=== PATIENT | female | born 2000 | race Caucasian/White ===

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

== ENCOUNTER 2021-02-10 17:51 | Emergency (ER) | payer OTHER, SELFPAY ==
--- NOTE | ~2021-02-10 | CT_ITS ---
EXAMINATION: CT abdomen pelvis w con INDICATION: Nausea and vomiting, right lower quadrant pain TECHNIQUE: Computed tomographic images of the abdomen and pelvis were obtained after the administrati on of 100 cc of Omnipaque 350 intravenous contrast. The dose-length product (DLP) was 1059.33 mGy-cm. Automated exposure control and iterative reconstruction technique were employed. COMPARISON: 07/28/2019 FINDINGS: The lung bases are clear. The heart size is normal. There is focal steatosis of the liver a djacent to the ligamentum teres. The spleen, pancreas, gallbladder, and adrenal glands are normal. Th e kidneys are unremarkable. No pathologically enlarged abdominal or pelvic lymph nodes are identified . There is no free intraperitoneal gas or evidence of bowel obstruction. The appendix is normal. IMPRESSION: 1. No CT correlate for the patient's symptoms. Reviewed, dictated and finalized at location A.
--- NOTE | 2021-02-10 18:01 | ECG_ITS ---
Measurements Intervals [place] Rate: 98 P: 10 NM: 150 QRS: 36 QRSD: 93 T: 1 QT: 334 QTc: 427 Interpretive Statements SINUS RHYTHM INCOMPLETE RIGHT BUNDLE BRANCH BLOCK BORDERLINE T WAVE ABNORMALITY- INFERIOR LEADS BORDERLINE ECG Electronically Signed On 02-14-2021 15:56:41 CDT by Ramon Malone D.O.
[2021-02-10 18:17] VITALS: BP 136/78; PULSE 95; RESP 16; TEMP 36.6; O2SAT 100
[2021-02-10 19:02] LABS: Basophils Percent Auto 0.4 % (0.2-1.2); Eosinophils Absolute Auto 0.2 K/mm3 (0-0.3); Eosinophils Percent Auto 1.7 % (0-4.4); Hematocrit 41.2 % (37.0-47.0); Hemoglobin 13.7 g/dL (12.0-15.0); Immature Granulocyte Absolute 0.02 K/mm3 (0.00-0.031); Immature Granulocyte Percent A 0.2 % (0-0.5); Lymphocytes Percent Auto 20.4 % (18.3-44.2); Mean Corpuscular HGB Conc 33.3 g/dl (32-36); Mean Corpuscular Volume 84.3 fl (80-100); Mean Platelet Volume 10.9 fl (7.4-10.4); Monocytes Absolute Auto 0.5 K/mm3 (0.1-0.6); Monocytes Percent Auto 5.4 % (2.6-8.5); Neutrophils Absolute Auto 7.1 K/mm3 (1.3-6.7); Neutrophils Percent Auto 71.9 % (45.5-73.1); Platelet Count Result 275 k/mm3 (150-375); Red Blood Count 4.89 M/mm3 (4.2-5.4); Red Cell Distribution Width 12.1 % (11.5-14.5); White Blood Count 9.8 K/mm3 (4.5-10.0)
--- NOTE | 2021-02-10 19:03 | ECG_ITS ---
Measurements Intervals [place] Rate: 73 P: 19 CO: 167 QRS: 27 QRSD: 96 T: 15 QT: 357 QTc: 394 Interpretive Statements SINUS RHYTHM INCOMPLETE RIGHT BUNDLE BRANCH BLOCK BASELINE WANDER- I, III, AVL, AVF BORDERLINE ECG Electronically Signed On 02-11-2021 7:31:12 CDT by Ramon Malone D.O.
[2021-02-10 19:15] LABS: Alanine Aminotransferase 25 U/L (4-35); Albumin Level 4.9 g/dL (3.7-5.6); Alkaline Phosphatase 82 U/L (45-116); Anion Gap 14 mmol/L (8-16); Aspartate Amino Transferase 46 U/L (14-36); Bilirubin,Total 0.4 mg/dL (0.2-1.3); Blood Urea Nitrogen 11 mg/dL (8-21); Calcium 9.9 mg/dL (8.9-10.7); Carbon Dioxide 19 mmol/L (22-30); Chloride 107 mmol/L (98-107); Estimated CRCL calculation 97 ml/min; Estimated Glomerular Filt Rate > 60; Glucose 76 mg/dL (65-110); Lipase 107 U/L (23-300); Potassium 4.2 mmol/L (3.4-5.0); Sodium 140 mmol/L (134-143)
[2021-02-10] MEDS: ONDANSETRON INJ 4 MG/2 ML VIAL IV PUSH (19:26)
[2021-02-10] MEDS: SODIUM CHLORIDE 0.9% IV 1,000 ML 999 ML IV CONT (19:26)
[2021-02-10] MEDS: FAMOTIDINE 20 MG/2 ML VIAL IV PUSH (19:26)
[2021-02-10 19:35] LABS: Add Urine Microscopic? YES; Amorphous Sediment Urine Few; Appearance Urine Cloudy (Clear); Bacteria Urine Trace /hpf; Bilirubin Urine Negative (Negative); Blood Urine 1+ (Negative); Color Urine Yellow (Yellow); Glucose Urine UA Negative (Negative); Ketones Urine Negative (Negative); Leukocyte Esterase Ur Negative LEU/UL (Negative); Mucus Urine Rare /lpf; Nitrate Urine Negative (Negative); Protein Urine Negative (Negative); RBC Urine 0-2 /hpf (0-2); Specific Grav Ur 1.012 (1.001-1.035); Squamous Epithelial Cell Urine Many /hpf (Few); Urobilinogen Urine Negative mg/dL (<2.0); WBC Urine 0-3 /hpf
[2021-02-10 19:39] VITALS: BP 110/64; PULSE 82
--- NOTE | 2021-02-10 19:40 | ED.GENADULT ---
HPI - General Adult General Chief complaint: Nausea/Vomiting/Diarrhea Stated complaint: high blood pressure/heart rate, throwing up blood Time Seen by Provider: 02/10/21 19:02 Source: patient and RN notes reviewed Mode of arrival: ambulatory Limitations: no limitations History of Present Illness HPI narrative: Patient is a 20-year-old female who presents with 2 days duration of nausea and vomiting with pain localized to the right lower quadrant patient has had GI issues in the past but states typically not causing this much emesis patient on arrival notes belly pain and nausea denies sick contacts or other complaints has not taken anything for her symptoms Related Data Home Medications Medication Instructions Recorded Confirmed dicyclomine 10 mg capsule 10 mg PO QID 01/18/21 01/18/21 nortriptyline 25 mg capsule 25 mg PO DAILY 01/18/21 01/18/21 ondansetron 4 mg disintegrating 4 mg PO Q8H 01/18/21 01/18/21 tablet Allergies Allergy/AdvReac Type Severity Reaction Status Date / Time No Known Allergies Allergy Verified 01/18/21 10:34 Review of Systems Review of Systems: All systems reviewed & are unremarkable except as noted in HPI and below PMFSH Past Medical History Medical History Abdominal pain BMI 37.0-37.9, adult COVID-19 Elevated lipase Migraine Family History Family History Father Hypertension Mother Diabetes mellitus Sibling No problems noted. 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 Gender identity (if verbalized by the patient): Female Exam Narrative: GENERAL: Well-appearing, well-nourished, and in no acute distress. HEAD: Normocephalic, atraumatic. EYES: PERRLA and EOMI. ENT: Nares clear, no rhinorrhea or epistaxis. Mucous membranes moist. CHEST: Clear to auscultation. No respiratory distress. No wheezes rales or rhonchi HEART: Regular rate and rhythm. No murmur heard. Normal peripheral pulses. ABDOMEN: Soft, right lower quadrant abdominal tenderness to palpation, nondistended, normal active bowel sounds. EXTREMITIES: Normal range of motion. No edema. SKIN: Warm, dry, no rash. NEURO: No focal deficits. Alert and oriented x3. PSYCH: Normal mood and affect. Course Course Emergency Course: Patient in the room in no distress resting comfortably aware of case findings treatment plan diagnosis Vital Signs Vital signs: Vital Signs Temperature 97.8 F 02/10/21 18:17 Pulse Rate 95 02/10/21 18:17 Respiratory Rate 16 02/10/21 18:17 Blood Pressure 136/78 02/10/21 18:17 Pulse Oximetry 100 02/10/21 18:17 Temperature 97.8 F 02/10/21 18:17 Pulse Rate 91 02/10/21 21:23 Respiratory Rate 26 H 02/10/21 21:23 Blood Pressure 123/66 02/10/21 21:23 Pulse Oximetry 100 02/10/21 21:23 Medical Decision Making MDM Narrative Medical decision making narrative: Patient with emesis right lower quadrant normal CAT scan normal blood work will be discharged home with outpatient follow-up Vital Signs Vital Signs: Vital Signs Temperature 97.8 F 02/10/21 18:17 Pulse Rate 95 02/10/21 18:17 Respiratory Rate 16 02/10/21 18:17 Blood Pressure 136/78 02/10/21 18:17 Pulse Oximetry 100 02/10/21 18:17 Temperature 97.8 F 02/10/21 18:17 Pulse Rate 91 02/10/21 21:23 Respiratory Rate 26 H 02/10/21 21:23 Blood Pressure 123/66 02/10/21 21:23 Pulse Oximetry 100 02/10/21 21:23 Lab Data Result diagrams: 02/10/21 18:40 02/10/21 18:40 Labs: Lab Results 02/10/21 02/10/21 02/10/21 Range/Units 18:40 18:40 1
[2021-02-10 19:42] VITALS: BP 120/77; PULSE 80
[2021-02-10 19:44] VITALS: BP 136/86; PULSE 90
[2021-02-10 21:23] VITALS: BP 123/66; PULSE 91; RESP 26; O2SAT 100
[2021-02-10 22:10] VITALS: BP 112/77; PULSE 87; RESP 18; O2SAT 100
== END 2021-02-10 22:11 | disposition home or self-care (01) ==
PROVIDERS: Emergency Provider Emergency Medicine; PCP Family Medicine
DX: R10.31 Right lower quadrant pain (principal); Z86.16 Personal history of COVID-19; I45.10 Unspecified right bundle-branch block
CPT/HCPCS: 36415; 74177; 80053; 81001; 81025; 83690; 85025; 93005; 96361; 96374; 96375; 99284; J2405; J7030; Q9967

== ENCOUNTER 2021-03-08 07:44 | Outpatient (CLI) | payer OTHER, SELFPAY ==
--- NOTE | ~2021-03-08 | NM_ITS ---
EXAM: NM gastric emptying study DATE: 03/08/2021 12:42 INDICATION: Nausea and vomiting. TECHNIQUE: A gastric emptying study was performed using the methodology of Jaziel WEBSTER, et al. J Nucl Med 2007; 48:568-572. The patient was given a meal consisting of 2 scrambled eggs labeled with 0.935 mCi Tc-99m sulfur colloid, 2 slices of toast, two packages of jam, and approximately 120 mL of water . Simultaneous anterior and posterior 1-min images of the abdomen were obtained with the patient supi ne at multiple time points over a total period of 4 hours. The geometric mean of anterior and posteri or views was determined, and the percentage retention was calculated for each time point. COMPARISON: CT abdomen and pelvis 02/10/2021 FINDINGS: Gastric retention of the radiotracer-labeled meal was 39%, 25%, and 4% at the 1-hour, 2-ho ur, and 4-hour time points, respectively. With this technique, apparent rapid gastric emptying is sug gested by <30% gastric retention at 1 hour. Delayed gastric emptying is defined by gastric retention of >90% at 1 hour, >60% retention at 2 hours, or >10% retention at 4 hours. IMPRESSION: 1. Normal gastric emptying. Reviewed, dictated and finalized at location A. IMPRESSION: 1. Normal gastric emptying.
== END 2021-03-08 07:45 | disposition home or self-care (01) ==
LOC: ANHIMG 07:45
PROVIDERS: PCP Family Medicine; Visit Provider Nurse Practitioner Family
DX: R11.2 Nausea with vomiting, unspecified (principal)
CPT/HCPCS: 78264; A9541

== ENCOUNTER 2021-04-06 08:23 | Outpatient (CLI) | payer OTHER, SELFPAY ==
--- NOTE | ~2021-04-06 | MR_ITS ---
EXAMINATION: MR brain/brain stem wo con DATE: 04/06/2021 09:59 CDT INDICATION: Headache TECHNIQUE: Magnetic resonance imaging (MRI) of the brain and brainstem was performed without intraven ous contrast. Sequences included sagittal and axial T1-weighted SE, axial diffusion-weighted FS SE, a xial T2*-weighted GRE, axial T2-weighted FLAIR Propeller, and axial T2-weighted Propeller. Apparent d iffusion coefficient (ADC) maps were created. COMPARISON: No prior studies for comparison. FINDINGS: The brain volume and ventricular system are within normal limits. The brain parenchymal si gnal intensity pattern and darling/white matter is normal and there is no evidence of hemorrhage, space occupying masses or infarctions. The flow signal voids of the major arterial structures about the campo of [place] and within the miguel angel r dural venous sinuses appear grossly unremarkable and patent. The seventh and eighth cranial nerve complexes are normal. The mid sagittal image demonstrates a normal craniovertebral junction and marcy us callosum. There is a small mucous retention cyst of the left maxillary sinus. Orbits are symmetric without disconjugate gaze. IMPRESSION: 1: Unremarkable MRI of the brain. Reviewed, dictated and finalized at location A.
== END 2021-04-06 08:24 | disposition home or self-care (01) ==
LOC: ANHIMG 08:30
PROVIDERS: PCP Family Medicine; Visit Provider Nurse Practitioner Family
DX: R51.9 Headache, unspecified (principal)
CPT/HCPCS: 70551

== ENCOUNTER 2021-07-03 22:48 | Emergency (ER) | payer OTHER, SELFPAY ==
--- NOTE | ~2021-07-03 | CT_ITS ---
EXAMINATION: CT lumbar spine wo con DATE: 07/03/2021 23:42 INDICATION: 8 hours of lower back pain and leg weakness TECHNIQUE: Computed tomography (CT) of the lumbar spine was performed without intravenous contrast. A utomated exposure control and iterative reconstruction technique were employed. The dose-length produ ct was 1337.74 mGy-cm. COMPARISON: CT dated 02/10/2021 FINDINGS: Alignment is normal. Vertebral body heights are normal. No fracture. Unchanged small unchanged small Schmorl's nodes along the central posterior aspect of the superior endplates of L4 and L5. Disc heigh ts are normal. Multilevel mild facet osteoarthritis throughout the lumbar and visualized lower thorac ic spine. Although sensitivity and specificity are significantly lower on CT than MRI there are disc bulges at L3-L4 through L5-S1 which are better appreciated on the prior contrast enhanced CT of the a bdomen and pelvis with a resultant mild to moderate central canal stenosis at L3-L4 and L4-L5. No sig nificant neural foraminal stenosis. Paravertebral soft tissues are unremarkable. Mild bilateral sacra l iliac osteoarthritis. IMPRESSION: 1. Mild lumbar spondylosis with disc bulges at L3-L4 through L5-S1 resulting in mild to moderate cent ral canal stenosis at L3-L4 and L4-L5. No acute osseous abnormality. Reviewed, dictated and finalized at location . E RESPOOLER IMPRESSION: 1. Mild lumbar spondylosis with disc bulges at L3-L4 through L5-S1 resulting in mild to moderate central canal stenosis at L3-L4 and L4-L5. No acute osseous a bnormality.
--- NOTE | 2021-07-03 23:06 | ED.BACK ---
HPI - Back Pain/Injury General Chief Complaint: Back Pain/Injury Stated Complaint: back pain Time Seen by Provider: 07/03/21 23:17 History of Present Illness HPI Narrative: 20-year-old woman comes in today complaining of worsening back pain for the last month. Patient states that she feels her legs are weak as well. She denies any falls or injuries. She has been seeing a chiropractor for her symptoms and getting no relief. She is currently taking tizanidine 2 mg t.i.d. as well as ibuprofen 600 mg as needed for her pain. She last took ibuprofen at 3:00 p.m.. She has had back pain issues in the past. 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 She denies dysuria, hematuria, frequent urination, incontinence, perineal numbness, radiating pain, leg or foot numbness, night sweats, weight loss and fever. MD elicited complaint: back pain Pertinent past history: prior back pain Onset (ago): week(s) (4) Timing: constant and progressively worsening Severity: severe Quality: sharp and aching Location: lumbar spine Radiation: none Exacerbating factors: movement and coughing/sneezing Relieving factors: none Associated symptoms: weakness Treatments prior to arrival: NSAIDS and prescription analgesics (Tizanidine) Related Data Home Medications Medication Instructions Recorded Confirmed dicyclomine 10 mg capsule 10 mg PO BID 06/13/21 07/03/21 amitriptyline 25 mg PO HS 07/03/21 07/03/21 Allergies Allergy/AdvReac Type Severity Reaction Status Date / Time No Known Allergies Allergy Verified 07/03/21 23:22 Review of Systems Review of Systems: All systems reviewed & are unremarkable except as noted in HPI and below Constitutional: Constitutional: Denies chills, Denies fever(s) and Reports weakness ENT: Denies nasal congestion and Denies sore throat Cardiovascular: Cardiovascular: Denies chest pain and Denies radiating jaw, neck or arm pain Respiratory: Respiratory: Denies cough and Denies dyspnea Gastrointestinal: Gastrointestinal: Denies abdominal pain, Denies diarrhea, Denies nausea and Denies vomiting Genitourinary: Genitourinary: Denies hematuria, Denies nocturia and Denies dysuria Musculoskeletal: Musculoskeletal: Reports as per HPI, Reports back pain, Denies arthralgias and Denies joint swelling Integumentary/Breasts: Skin/Breast: Denies pruritus, Denies erythema and Denies rash Neurologic: Denies vertigo, Denies dizziness and Denies syncope [facility] Past Medical History Medical History Abdominal pain BMI 35.0-35.9,adult BMI 37.0-37.9, adult BMI 38.0-38.9,adult COVID-19 Elevated lipase IBS (irritable bowel syndrome) Migraine Family History Family History Father Hypertension Mother Diabetes mellitus Sibling No problems noted. 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 Gender identity (if verbalized by the patient): Female Exam Const: General: healthy appearing and alert Orientation/consciousness: patient oriented x3 Limitations: no limitations Other: Moderate to severe acute distress. HENMT: Head: normal to inspection Ears: external ears normal, TM's normal bilaterally and EAC's normal Mouth: Yes moist mucous membranes Throat: posterior oropharynx normal Eyes: Conjunctivae: conjunctivae normal Pupils: Equal, round and reactive pupils present EOM: EOMs intact bilaterally Resp: Effort & Inspection: normal respiratory effort and not labored Auscultation: clear to auscultation bilaterally,
[2021-07-03 23:12] VITALS: BP 148/96; PULSE 103; RESP 21; TEMP 36.9; O2SAT 97
[2021-07-03 23:22] LABS: Add Urine Microscopic? YES; Appearance Urine Clear (Clear); Bilirubin Urine Negative (Negative); Blood Urine 2+ (Negative); Color Urine Light Yellow (Yellow); Glucose Urine UA Negative (Negative); Ketones Urine Negative (Negative); Leukocyte Esterase Ur Negative (Negative); Nitrate Urine Negative (Negative); Protein Urine Negative (Negative); Urobilinogen Urine 0.2 mg/dL (0.2-1.0)
[2021-07-03 23:27] LABS: Bacteria Urine Trace /hpf; Squamous Epithelial Cell Urine Few /hpf (Few); WBC Urine 0-3 /hpf (0-3)
[2021-07-03 23:28] LABS: Pregnancy On Board Control Positive; Urine Pregnancy Test Negative
[2021-07-03] MEDS: HYDROcodone/acetaminophen (*CRX) 5-325 MG TABLET 1 TAB PO (23:48)
[2021-07-03] MEDS: KETOROLAC (*BKC) 60 MG/2 ML VIAL IM (23:49)
[2021-07-04 00:25] VITALS: BP 126/76; PULSE 95; RESP 17; O2SAT 99
== END 2021-07-04 00:27 | disposition home or self-care (01) ==
PROVIDERS: Emergency Provider Emergency Medicine; PCP Family Medicine
DX: M54.50 Low back pain, unspecified (principal)
CPT/HCPCS: 72131; 81001; 81025; 96372; 99283; 99284; A9270; J1885

== ENCOUNTER → 2022-06-14 13:33 | Outpatient (CLI) | payer OTHER, SELFPAY ==
--- NOTE | ~2022-06-14 | US_ITS ---
EXAMINATION: US transvaginal DATE: 06/14/2022 13:56 INDICATION: Unspecified amenorrhea TECHNIQUE: Multiple endovaginal sonographic images of the pelvis were obtained. COMPARISON: None. FINDINGS: The uterus measures 8.2 x 3.5 x 4.6 cm. The endometrial complex measures 13 mm. The right o vary measures 2.3 x 2 x 2.6 cm. The left ovary measures 2.4 x 2.6 x 2 cm. There is normal vascular fl ow in the ovaries. There is no free fluid in the pelvis. IMPRESSION: 1. No sonographic correlate for the patient's symptoms. Reviewed, dictated and finalized at location A. 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
== END ==
PROVIDERS: PCP Family Medicine; Visit Provider Nurse Practitioner
DX: N91.2 Amenorrhea, unspecified (principal)
CPT/HCPCS: 76830

== ENCOUNTER 2023-04-02 11:14 | Emergency (ER) | payer OTHER, SELFPAY ==
[2023-04-02 11:45] VITALS: BP 135/97; PULSE 76; RESP 16; TEMP 36.5; O2SAT 100
[2023-04-02 12:08] LABS: Basophils Absolute Auto 0.1 K/mm3 (0.0-0.1); Basophils Percent Auto 0.6 % (0.2-1.2); Eosinophils Absolute Auto 0.2 K/mm3 (0-0.3); Eosinophils Percent Auto 2.1 % (0-4.4); Hematocrit 36.3 % (37.0-47.0); Hemoglobin 11.9 g/dL (12.0-15.0); Immature Granulocyte Absolute 0.02 K/mm3 (0.00-0.031); Immature Granulocyte Percent A 0.2 % (0-0.5); Lymphocytes Absolute Auto 2.47 K/mm3 (0.9-3.2); Lymphocytes Percent Auto 27.9 % (18.3-44.2); Mean Corpuscular HGB Conc 32.8 g/dl (32-36); Mean Corpuscular Hemoglobin 27.4 pg (26-34); Mean Corpuscular Volume 83.6 fl (80-100); Mean Platelet Volume 10.3 fl (7.4-10.4); Monocytes Absolute Auto 0.5 K/mm3 (0.1-0.6); Monocytes Percent Auto 5.9 % (2.6-8.5); Neutrophils Absolute Auto 5.6 K/mm3 (1.3-6.7); Neutrophils Percent Auto 63.3 % (45.5-73.1); Platelet Count Result 323 k/mm3 (150-375); Red Blood Count 4.34 M/mm3 (4.2-5.4); Red Cell Distribution Width 12.7 % (11.5-14.5); White Blood Count 8.8 K/mm3 (4.5-10.0)
[2023-04-02 12:36] LABS: Beta HCG Quantitative < 2.39 mIU/ML
[2023-04-02 13:45] VITALS: BP 120/68; PULSE 75
[2023-04-02 13:47] VITALS: BP 125/63; PULSE 82
[2023-04-02 13:48] VITALS: BP 118/72; PULSE 97
--- NOTE | 2023-04-02 14:23 | ED.GENADULT ---
HPI - General Adult General Chief complaint: Vaginal Bleeding Stated complaint: vaginal bleeding Time Seen by Provider: 04/02/23 13:46 History of Present Illness HPI narrative: Marlene Barajas is a 22 y/o female with PMHx of PCOS with heavy menstrual cycles. She states that she had a menstrual cycle 2 months ago that lasted a month, then she went a month without a cycle and then started to have this cycle that started on 03/19. She called her OBGYN because she was having heavy vaginal bleeding going through a tampon in 3 hours. She was then started on progesterone on 03/23. She thinks her bleeding has slowed down, she thought it was over and then started to have more vaginal bleeding today- she called her OBGYN in [place] and her OB is out sick and they encouraged her to go to the ED to make sure her counts are stable and to make sure she is not having a miscarriage. Patient denies any pain / complaints at this time and has used 2-3 pads today so far and states that she believes the vaginal bleeding is better then it was. Related Data Allergies Allergy/AdvReac Type Severity Reaction Status Date / Time No Known Allergies Allergy Verified 04/02/23 13:50 Review of Systems Review of Systems: CONSTITUTIONAL: Denies fever, chills, or sweats. EYES: Denies visual changes, redness, or discharge. ENT: Denies rhinorrhea, congestion, sore throat, or otalgia. CARDIOVASCULAR: Denies chest pain, palpitations, or edema. RESPIRATORY: Denies cough or dyspnea. GASTROINTESTINAL: Denies abdominal pain, nausea, vomiting, or diarrhea. GENITOURINARY: Denies dysuria or hematuria. SKIN: Denies rash or itching. MUSCULOSKELETAL: Denies back pain, joint pain, or myalgia. NEUROLOGIC: Denies headache, numbness, dizziness, or weakness. PSYCHIATRIC: Denies anxiety or depression. [facility] Past Medical History Medical History Abdominal pain BMI 35.0-35.9,adult BMI 37.0-37.9, adult BMI 38.0-38.9,adult BMI 40.0-44.9, adult COVID-19 Elevated lipase IBS (irritable bowel syndrome) Lumbar spondylosis Migraine Family History Family History Father Hypertension Mother Diabetes mellitus Sibling No problems noted. Other Family history of coronary artery disease Social History Social History Smoking status: Never smoker Second hand tobacco smoke exposure: No Alcohol intake: never Substance use: never Substance use type: does not use Lack of Transportation: YES Lack of Food: Never True Current Housing: I Have Housing Concerned About Future Housing: No Difficulty Paying Gas/Electric Bills: No Difficulty Paying for Meds: No Currently Unemployed: No Education: High School Diploma/GED Difficulty w/ Childcare or Family Care: No Living arrangements: with family Occupation/Education: occupation Additional occupation/education comments: [employer] Gender identity (if verbalized by the patient): Female Exam Narrative: GENERAL: Well-appearing, well-nourished, and in no acute distress. HEAD: Normocephalic, atraumatic. EYES: PERRLA and EOMI. ENT: Nares clear, no rhinorrhea or epistaxis. Mucous membranes moist. Oropharynx without tonsillar hypertrophy exudate or other lesions. NECK: Supple. No adenopathy or masses. No carotid bruits or JVD CHEST: Clear to auscultation. No respiratory distress. No wheezes rales or rhonchi HEART: Regular rate and rhythm. No murmur heard. Normal peripheral pulses. ABDOMEN: Soft, nontender, nondistended, normal active bowel sounds. EXTREMITIES: Normal range of motion. No edema. SKIN: Warm, dry, no rash. NEURO: No focal deficits. Alert and oriented x3. PSYCH: Normal mood and affect. Course Vital Signs Vital signs: Vital Signs Temperature 36.5 C 04/02/23 11:45 Pulse Rate 76 04/02/23 11:45 Respiratory Rate
[2023-04-02 14:46] VITALS: BP 116/92; PULSE 57; RESP 14; O2SAT 97
== END 2023-04-02 14:46 | disposition home or self-care (01) ==
PROVIDERS: Emergency Medicine; Emergency Provider Nurse Practitioner Family; PCP Family Medicine
DX: N93.8 Other specified abnormal uterine and vaginal bleeding (principal); E28.2 Polycystic ovarian syndrome
CPT/HCPCS: 36415; 84702; 85025; 85461; 86850; 86900; 86901; 99283

== ENCOUNTER 2023-11-23 15:01 | Emergency (ER) | payer SELFPAY ==
--- NOTE | ~2023-11-23 | CT_ITS ---
EXAMINATION: CT abdomen pelvis w con DATE: 11/23/2023 19:01 INDICATION: epigastric pain TECHNIQUE: Computed tomography (CT) of the abdomen and pelvis was performed with 100 mL Omnipaque-350 intravenous contrast. Automated exposure control and iterative reconstruction technique were employe d. The dose-length product was 1473.62 mGy-cm. COMPARISON: 02/10/2021. FINDINGS: Lower thorax: Unremarkable Liver: Normal. Biliary/Gallbladder: Gallbladder is normal. No bile duct dilation. Pancreas: No mass or duct dilation. Spleen: Normal. Adrenals:No mass. Kidneys: No suspicious mass, obstructing stone, or hydronephrosis. GI tract: Mild distal esophageal and moderate antral wall edema. Small hiatal hernia. No small or lar ge bowel dilation. Normal appendix. Mesentery/Peritoneum: No ascites, mass, or free air. Retroperitoneum: No mass. Pelvis: Pelvic organs are within normal limits. Soft Tissues: Soft tissues and body wall unremarkable. Bones: No acute osseous finding. IMPRESSION: Mild esophagitis and moderate antral gastritis. Otherwise unremarkable CT abdomen and pelvis findings. Reviewed, dictated and finalized at location K.
[2023-11-23 15:09] VITALS: BP 147/93; PULSE 102; RESP 18; TEMP 36.6; O2SAT 100
[2023-11-23 16:36] LABS: Basophils Percent Auto 0.4 % (0.2-1.2); Eosinophils Absolute Auto 0.2 K/mm3 (0-0.3); Eosinophils Percent Auto 2.1 % (0-4.4); Hematocrit 33.1 % (37.0-47.0); Hemoglobin 10.8 g/dL (12.0-15.0); Immature Granulocyte Absolute 0.03 K/mm3 (0.00-0.031); Immature Granulocyte Percent A 0.3 % (0-0.5); Lymphocytes Absolute Auto 2.52 K/mm3 (0.9-3.2); Lymphocytes Percent Auto 26.6 % (18.3-44.2); Mean Corpuscular HGB Conc 32.6 g/dl (32-36); Mean Corpuscular Hemoglobin 27.7 pg (26-34); Mean Corpuscular Volume 84.9 fl (80-100); Mean Platelet Volume 10.6 fl (7.4-10.4); Monocytes Absolute Auto 0.5 K/mm3 (0.1-0.6); Monocytes Percent Auto 5.6 % (2.6-8.5); Neutrophils Absolute Auto 6.2 K/mm3 (1.3-6.7); Platelet Count Result 307 k/mm3 (150-375); Red Cell Distribution Width 12.7 % (11.5-14.5); White Blood Count 9.5 K/mm3 (4.5-10.0)
[2023-11-23 16:49] LABS: Prothrombin Time 13.2 Seconds (11.1-14.7)
[2023-11-23 16:50] LABS: Partial Thromboplastin Time 26.4 Seconds (22.3-36.8)
[2023-11-23 16:55] LABS: Alanine Aminotransferase 17 U/L (6-35); Albumin Level 4.1 g/dL (3.5-5.1); Alkaline Phosphatase 69 U/L (38-126); Anion Gap 7 mmol/L (4-12); Aspartate Amino Transferase 22 U/L (14-36); Bilirubin,Total 0.3 mg/dL (0.2-1.3); Blood Urea Nitrogen 12 mg/dL (7-17); Calcium 9.1 mg/dL (8.4-10.2); Carbon Dioxide 24 mmol/L (22-30); Chloride 106 mmol/L (98-107); Estimated CRCL calculation 121 ml/min; Estimated Glomerular Filt Rate > 60; Glucose 118 mg/dL (65-110); Potassium 3.9 mmol/L (3.4-5.0); Sodium 137 mmol/L (137-145)
--- NOTE | 2023-11-23 18:09 | ED.ABDPAIN ---
HPI - Abdominal Pain General Chief Complaint: [employer] <Kashif Parisi MD - Last Filed: 11/23/23 18:20> Stated Complaint: Vaginal Bleeding and ABD Pain <Kashif Parisi MD - Last Filed: 11/23/23 18:20> Time Seen by Provider: 11/23/23 16:23 <Kashif Parisi MD - Last Filed: 11/23/23 18:20> Source: patient <Kashif Parisi MD - Last Filed: 11/23/23 18:20> Mode of arrival: ambulatory <Kashif Parisi MD - Last Filed: 11/23/23 18:20> Limitations: no limitations <Kashif Parisi MD - Last Filed: 11/23/23 18:20> History of Present Illness HPI narrative: 23-year-old otherwise healthy here with the complaints of having vaginal bleeding for last several weeks. Patient states that she has been seen in 2 different ERs for the same problem in the last 1 week was in [facility] in [place] and in [place] was started on control pill however she still continues to have vaginal bleeding. Patient states that she soaks about 3 pads a day. Since this morning now she is having upper abdominal pain. Call Dr. Henry recommended her to come to the ER. Patient states that she has not seen flux mixer yet. No history of fever or chills denies any nausea or vomiting. Patient states that initially her pain was in the lower abdomen now it has migrated to the upper abdomen <Kashif Parisi MD - Last Filed: 11/23/23 18:20> MD elicited complaint: abdominal pain <Kashif Parisi MD - Last Filed: 11/23/23 18:20> Pertinent past history: none <Kashif Parisi MD - Last Filed: 11/23/23 18:20> Onset (ago): week(s) (1) <Kashif Parisi MD - Last Filed: 11/23/23 18:20> Quality: aching <Kashif Parisi MD - Last Filed: 11/23/23 18:20> Radiation: suprapubic <Kashif Parisi MD - Last Filed: 11/23/23 18:20> Migration to: epigastric <Kashif Parisi MD - Last Filed: 11/23/23 18:20> Exacerbating factors: nothing <MD Leonie Peñaloza Last Filed: 11/23/23 18:20> Relieving factors: nothing <MD Leonie Peñaloza Last Filed: 11/23/23 18:20> Associated symptoms: denies other symptoms <MD Leonie Peñaloza Last Filed: 11/23/23 18:20> Related Data Home Medications: Home Medications Medication Instructions Recorded Confirmed norethindrone 1 mg-ethinyl 1 tablet PO DAILY 11/11/23 estradiol 35 mcg (21) tablet (Nortrel) <MD Leonie Peñaloza Last Filed: 11/23/23 18:20> Allergies/Adverse Reactions: Allergies Allergy/AdvReac Type Severity Reaction Status Date / Time No Known Allergies Allergy Verified 11/23/23 16:10 <Kashif Parisi MD - Last Filed: 11/23/23 18:20> Review of Systems Review of Systems: All systems reviewed & are unremarkable except as noted in HPI and below <MD Leonie Peñaloza Last Filed: 11/23/23 18:20> Constitutional: Constitutional: Reports no additional constitutional complaints <MD Leonie Peñaloza Last Filed: 11/23/23 18:20> Eyes: Eyes: Reports no additional eye complaints <MD Leonie Peñaloza Last Filed: 11/23/23 18:20> ENT: Reports system reviewed and no additional complaints, except as documented <MD Leonie Peñaloza Last Filed: 11/23/23 18:20> Cardiovascular: Cardiovascular: Reports no additional cardiovascular complaints <MD Leonie Peñaloza Last Filed: 11/23/23 18:20> Respiratory: Respiratory: Reports no additional respiratory complaints <MD Leonie Peñaloza Last Filed: 11/23/23 18:20> Gastrointestinal: Gastrointestinal: Reports as per HPI <MD Leonie Peñaloza Last Filed: 11/23/23 18:20> Genitourinary: Genitourinary: Reports as per HPI <MD Leonie Peñaloza Last Filed: 11/23/23 18:20> Musculoskeletal: Musculoskeletal: Reports no additional musculoskeletal complaints <MD Leonie Peñaloza Last Filed: 11/23/23 18:20> Integumentary/Breasts: Skin/Breast: Reports system reviewed and no additional complaints, except as docu <Kashif Parisi MD - Last Filed: 11/23/23 18:20> Neurologic: Reports sys
[2023-11-23] MEDS: KETOROLAC 15 MG/ML VIAL (*BKC) IV PUSH (18:27)
[2023-11-23] MEDS: FAMOTIDINE 20 MG TABLET PO (20:18)
[2023-11-23] MEDS: BELLADONNA ALK/PHENOB ELIX 10 ML, MAG HYDROX/ALUMINUM HYD/SIMETH 30 ML, LIDOCAINE HCL 2... PO (20:18)
[2023-11-23 20:30] LABS: Bacteria Urine 1+ /hpf; Non Pathogenic Casts 0-2; RBC Urine >100 /hpf (0-2); Squamous Epithelial Cell Urine Occasional /hpf (Few)
[2023-11-23 20:32] LABS: Appearance Urine Cloudy (Clear); Bilirubin Urine Negative (Negative); Blood Urine 3+ (Negative); Color Urine Red (Yellow); Glucose Urine UA Negative (Negative); Ketones Urine Negative (Negative); Leukocyte Esterase Ur 1+ LEU/UL (Negative); Nitrate Urine Negative (Negative); Protein Urine 1+ mg/dL (Negative); Specific Grav Ur 1.016 (1.001-1.035); Urobilinogen Urine 0.2 mg/dL (<2.0); pH Urine 6.5 (5.0-9.0)
[2023-11-23 20:34] LABS: Add Urine Microscopic? YES
[2023-11-23 21:09] VITALS: BP 151/102; PULSE 86; RESP 16; O2SAT 100
== END 2023-11-23 21:09 | disposition home or self-care (01) ==
PROVIDERS: Emergency Medicine; Emergency Provider Preventive Medicine Aerospace Medicine; PCP Family Medicine
DX: K29.00 Acute gastritis without bleeding (principal); K20.90 Esophagitis, unspecified without bleeding; K44.9 Diaphragmatic hernia without obstruction or gangrene; K58.9 Irritable bowel syndrome, unspecified; Z86.2 Personal history of diseases of the blood and blood-forming organs and certain disorders involving the immune mechanism
CPT/HCPCS: 36415; 74177; 80053; 81001; 81025; 85025; 85610; 85730; 87077; 87086; 87088; 96374; 99284; A9270; J1885; Q9967